=== PATIENT | male | born 1985 | race Caucasian/White ===

== ENCOUNTER 2017-02-04 15:05 | Emergency (ER) | payer SELFPAY ==
[~2017-02-04 15:05] MED LIST: ALBU8.5H2 INHALATION
== END 2017-02-04 15:30 | disposition left against medical advice (07) ==
LOC: SED 15:05
DX: Z76.0 Encounter for issue of repeat prescription (principal); Z53.29 Procedure and treatment not carried out because of patient's decision for other reasons